=== PATIENT | female | born 1970 | race Caucasian/White ===

== ENCOUNTER 2025-05-22 08:24 | Outpatient (CLI) | payer BC, OTHER ==
[~2025-05-22 08:24] MED LIST: HYDR-4383 PO; SYN0.025T PO
[2025-05-22 09:33] LABS: MEAN PLATELET VOLUME 9.0 FL (7.4-10.4); RED CELL DISTRIBUTION WIDTH 13.8 % (11.5-14.5)
[2025-05-22 09:45] LABS: % IRON SATURATION 22 % (11-46)
[2025-05-22 09:58] LABS: CHOL/HDL RATIO 3.5 (0.00-4.99); CREATININE 0.93 MG/DL (0.40-0.90); LDL CHOLESTEROL 98 MG/DL (50-100); TOTAL CARBON DIOXIDE 28.6 MMOL/L (24-32); eGFR 63 ML/MIN
--- NOTE | 2025-05-22 17:22 | RADIOLOGY REPORT ---
PROCEDURE: MR MRI C SPINE Indication: CERVICALGIA COMPARISON: None TECHNIQUE: Multiplanar multisequence images of the the cervical spine are obtained. FINDINGS: The cervical vertebral body heights are maintained. Moderate multilevel disc space narrowing. Straightening of normal cervical spine curvature. No prevertebral edema. Atlantooccipital, atlantoaxial articulations intact. Nasopharyngeal tissue measuring 2.4 x 1.5 cm. Right cervical jugulodigastric lymph node measuring up to 12 mm. Left cervical jugulodigastric lymph nodes measuring up to 12 mm. Left submandibular lymph nodes measuring up to 10 mm. Left posterior cervical triangle lymph nodes measuring up to 9 mm. C2-3: Small disc osteophyte complex. No spinal canal stenosis. Mild bilateral neural foraminal stenosis. C3-4: Small disc osteophyte complex. No spinal canal stenosis. Moderate to severe right and moderate left neural foraminal stenosis. C4-5: Small disc osteophyte complex narrowing the ventral and dorsal CSF spaces. Thecal sac measures 10 mm AP. No spinal canal stenosis. Severe bilateral neural foraminal stenosis. C5-6: This disc osteophyte complex narrowing ventral and dorsal CSF spaces. Thecal sac measures 7 mm AP. Moderate spinal canal stenosis. Severe bilateral neural foraminal stenosis. C6-7: Disc osteophyte complex narrowing the ventral and dorsal CSF spaces. Thecal sac measures 9 mm AP. Mild spinal canal stenosis. Severe bilateral neural foraminal stenosis. C7-T1: No spinal canal stenosis. Mild bilateral neural foraminal stenosis. IMPRESSION: Moderate cervical degenerative disc disease. Moderate spinal canal stenosis C5-6. Mild spinal canal stenosis C6-7. Severe stenosis at C4-5, C5-6 and C6-7. Moderate to severe neural foraminal stenosis C3-4. [id number] foraminal stenosis at the remaining levels. Prominent nasopharyngeal tissue measuring 2.4 x 1.5 cm. Recommend ENT consultation for direct visualization to exclude mass/neoplasm. Neck lymphadenopathy as described which can be secondary to reactive / infectious / inflammatory / neoplastic processes.
== END 2025-05-22 23:59 | disposition home or self-care (01) ==
LOC: MRI02 08:24
PROVIDERS: ATTEND Nurse Practitioner
DX: M54.2 Cervicalgia (principal); G89.29 Other chronic pain; E78.2 Mixed hyperlipidemia; R53.83 Other fatigue
CPT/HCPCS: 36415; 72141; 80053; 80061; 82306; 82607; 82670; 82746; 83001; 83002; 83036; 83540; 83550; 84144; 84402; 84403; 84443; 84550; 85025; 85651